=== PATIENT | male | born 1960 | race Caucasian/White ===

== ENCOUNTER 2019-02-27 12:29 | Emergency (ER) | payer SELFPAY ==
[~2019-02-27] VITALS: Ht 167.6 cm; Wt 64.9 kg
--- OUTSIDE RECORDS SUMMARY | 2019-02-27 12:38 | XMS REPORT ---
Author Author JUDITH WASHINGTON Organization [facility] Address [address] [place] [address] Care Team Providers Care Side Laster Staple Name Role Phone JUDITH WASHINGTON Unavailable PROBLEMS Type Condition ICD9-CM Code [id number]-BH Code Onset Dates Condition Status SNOMED Code Problem Type 2 diabetes mellitus without complication, without long-term current use of insulin E11.9 Active 834908832 Problem Hematuria, unspecified 599.70 Active 98548415 ALLERGIES No Information ENCOUNTERS Encounter Location Date Diagnosis [place] [address] [address] Jul, [place] [address] [address] Jul, [place] [address] [address] Jul, Type 2 diabetes mellitus without complication, without long-term current use of insulin E11.9 and Encounter for immunization Z23 [place] [address] [place] [id number] [place] [address] Jan, [place] [address] [place] [id number] [place] [address] Jan, [place] [address] [place] [id number] [place] [address] Dec, [place] [address] [address] Dec, IMMUNIZATIONS No Known Immunizations SOCIAL HISTORY Never Assessed REASON FOR VISIT New orders PLAN OF CARE VITAL SIGNS MEDICATIONS Medication Instructions Dosage Frequency Start Date End Date Duration Status Lisinopril 10 mg Orally Once a day 1 tablet 24h Jul, 30 day(s) Active RESULTS No Results PROCEDURES No Known procedures INSTRUCTIONS MEDICATIONS ADMINISTERED No Known Medications MEDICAL (GENERAL) HISTORY Type Description Date Medical History diabetes type 2 Surgical History tooth removed 07/11/2018
--- OUTSIDE RECORDS SUMMARY | 2019-02-27 12:38 | XMS REPORT ---
Author Author JUDITH WASHINGTON Organization [facility] Address [address] [place] [address] Care Team Providers Care Education Professor Name Role Phone JUDITH WASHINGTON Unavailable PROBLEMS Type Condition ICD9-CM Code UXG60-AT Code Onset Dates Condition Status SNOMED Code Problem Type 2 diabetes mellitus without complication, without long-term current use of insulin E11.9 Active 033923863 Problem Hematuria, unspecified 599.70 Active 09481155 ALLERGIES No Information ENCOUNTERS Encounter Location Date Diagnosis [place] [address] [address] Jul, [place] [address] [address] Jul, [place] [address] [address] Jul, [place] [address] [address] Jul, Type 2 diabetes mellitus without complication, without long-term current use of insulin E11.9 and Encounter for immunization Z23 [place] [address] [place] [id number] [place] [address] Jan, [facility] [address] [place] [id number] [place] [address] Jan, [place] [address] [address] Dec, [place] [address] [address] Dec, IMMUNIZATIONS No Known Immunizations SOCIAL HISTORY Never Assessed REASON FOR VISIT Refill request PLAN OF CARE VITAL SIGNS MEDICATIONS Medication Instructions Dosage Frequency Start Date End Date Duration Status Metformin HCl 500 mg Orally twice a day 1 tablet with a meal 12h 30 days Active Glimepiride 1 MG Orally Once a day 1 tablet with breakfast or the first main meal of the day 24h 30 day(s) Active RESULTS No Results PROCEDURES No Known procedures INSTRUCTIONS MEDICATIONS ADMINISTERED No Known Medications MEDICAL (GENERAL) HISTORY Type Description Date Medical History diabetes type 2 Surgical History tooth removed 07/11/2018
--- OUTSIDE RECORDS SUMMARY | 2019-02-27 12:38 | XMS REPORT ---
Author Author JUDITH WASHINGTON Organization [facility] Address [address] [place] [address] Care Team Providers Care Doggy Daycare Activities Director Name Role Phone JUDITH WASHINGTON Unavailable PROBLEMS Type Condition ICD9-CM Code SEA25-BU Code Onset Dates Condition Status SNOMED Code Problem Erectile dysfunction, unspecified erectile dysfunction type N52.9 Active 119565950 Problem Primary hypertension I10 Active 99057127 Problem Type 2 diabetes mellitus without complication, without long-term current use of insulin E11.9 Active 330198522 Problem Hematuria, unspecified 599.70 Active 69511815 ALLERGIES No Known Allergies ENCOUNTERS Encounter Location Date Diagnosis [place] [address] [place] [id number] [place] [address] Oct, [facility] [address] [place] [id number] [place] [address] Sep, Erectile dysfunction, unspecified erectile dysfunction type N52.9 ; Type 2 diabetes mellitus without complication, without long-term current use of insulin E11.9 and Primary hypertension I10 [place] [address] [place] [id number] [place] [address] Aug, [place] [address] [place] [id number] [place] [address] Jul, [facility] [address] [place] [id number] [place] [address] Jul, [facility] [address] [address] Jul, [place] [address] [place] [id number] [place] [address] Jul, Type 2 diabetes mellitus without complication, without long-term current use of insulin E11.9 and Encounter for immunization Z23 [facility] [address] [facility] [id number] [address] Jan, [facility] [address] [facility] [id number] [address] Jan, [facility] [address] [facility] [id number] [address] Dec, [facility] [address] [facility] [id number] [address] Dec, IMMUNIZATIONS No Known Immunizations SOCIAL HISTORY Never Assessed REASON FOR VISIT Erectile dysfunction c/o-misha,RMA, pt is still having some issues with his er ections wants to know if there any medicine he can take PLAN OF CARE Activity Details Follow Up scheduled apt Reason: VITAL SIGNS Height 66 in 2018-09-20 Weight 156.3 lbs 2018-09-20 Temperature 97.0 degrees Fahrenheit 2018-09-20 Heart Rate 79 bpm 2018-09-20 Respiratory Rate 18 2018-09-20 Oximetry on room air:100 % 2018-09-20 BMI 25.22 kg/m2 2018-09-20 Blood pressure systolic 140 mmHg 2018-09-20 Blood pressure diastolic 76 mmHg 2018-09-20 MEDICATIONS Medication Instructions Dosage Frequency Start Date End Date Duration Status Glimepiride 1 MG Orally Once a day 1 tablet with breakfast or the first main meal of the day 24h 30 day(s) Active Lisinopril 10 mg Orally Once a day 1 tablet 24h Jul, 30 day(s) Active Metformin HCl 500 mg Orally twice a day 1 tablet with a meal 12h 30 days Active Sildenafil Citrate 100 MG Orally Once a day 1 tablet as needed 24h Sep, 21 days Active RESULTS No Results PROCEDURES No Known procedures INSTRUCTIONS MEDICATIONS ADMINISTERED No Known Medications MEDICAL (GENERAL) HISTORY Type Description Date Medical History diabetes type 2 Medical History ED Surgical History tooth removed 07/11/2018 Surgical History appendectomy Surgical History kidney stone
--- OUTSIDE RECORDS SUMMARY | 2019-02-27 12:38 | XMS REPORT ---
Author Author JUDITH WASHINGTON Organization [facility] Address [address] [place] [address] Care Team Providers Care Business Consultant Name Role Phone JUDITH WASHINGTON Unavailable PROBLEMS Type Condition ICD9-CM Code YFS51-VL Code Onset Dates Condition Status SNOMED Code Problem Type 2 diabetes mellitus without complication, without long-term current use of insulin E11.9 Active 424315278 Problem Hematuria, unspecified 599.70 Active 25576101 ALLERGIES No Information ENCOUNTERS Encounter Location Date Diagnosis [place] [id number] [address] Oct, [facility] [address] [address] Aug, [facility] [address] [address] Jul, [facility] [address] [address] Jul, [facility] [address] [place] [id number] [place] [address] Jul, [facility] [address] [address] Jul, Type 2 diabetes mellitus without complication, without long-term current use of insulin E11.9 and Encounter for immunization Z23 [facility] [address] [address] Jan, [facility] [address] [address] Jan, [facility] [address] [address] Dec, [facility] [address] [facility] [id number] [address] Dec, IMMUNIZATIONS No Known Immunizations SOCIAL HISTORY Never Assessed REASON FOR VISIT Repository Medication PLAN OF CARE VITAL SIGNS MEDICATIONS Unknown Medications RESULTS No Results PROCEDURES No Known procedures INSTRUCTIONS MEDICATIONS ADMINISTERED No Known Medications MEDICAL (GENERAL) HISTORY Type Description Date Medical History diabetes type 2 Surgical History tooth removed 07/11/2018
--- OUTSIDE RECORDS SUMMARY | 2019-02-27 12:39 | XMS REPORT ---
Author Author JUDITH WASHINGTON Organization [facility] Address [address] [place] [address] Care Team Providers Care Science Center Display Builder Name Role Phone JUDITH WASHINGTON Unavailable PROBLEMS Type Condition ICD9-CM Code CPQ88-HL Code Onset Dates Condition Status SNOMED Code Problem Type 2 diabetes mellitus without complication, without long-term current use of insulin E11.9 Active 200690167 Problem Hematuria, unspecified 599.70 Active 80006363 ALLERGIES No Known Allergies ENCOUNTERS Encounter Location Date Diagnosis [place] [address] [address] Jul, [place] [address] [address] Jul, [facility] [address] [address] Jul, Type 2 diabetes mellitus without complication, without long-term current use of insulin E11.9 and Encounter for immunization Z23 [place] [address] [place] [id number] [place] [address] Jan, [place] [address] [place] [id number] [place] [address] Jan, [place] [address] [place] [id number] [place] [address] Dec, [place] [address] [address] Dec, IMMUNIZATIONS Vaccine Route Administration Date Status FLULAVAL QUAD 0.5ML (6 MO & UP) 2018 IM Intramuscular Jul 13, 2018 Administered SOCIAL HISTORY Never Assessed REASON FOR VISIT Establish Care-MORIAH cabral, patient would like to have his A1C checked PLAN OF CARE Activity Details Follow Up 3 Months. 3 months or as indicated by lab Reason:DM routine check up Pending Test MICROALBUMIN, URINE (IN HOUSE) Pending Test LIPID PANEL Pending Test CBC VITAL SIGNS Height 66 in 2018-07-13 Weight 154.2 lbs 2018-07-13 Temperature 97.4 degrees Fahrenheit 2018-07-13 Heart Rate 63 bpm 2018-07-13 Respiratory Rate 18 2018-07-13 Oximetry on room air:99 % 2018-07-13 BMI 24.89 kg/m2 2018-07-13 Blood pressure systolic 130 mmHg 2018-07-13 Blood pressure diastolic 78 mmHg 2018-07-13 MEDICATIONS Medication Instructions Dosage Frequency Start Date End Date Duration Status Metformin HCl 500 MG Orally twice a day 1 tablet with a meal 12h Active Glimepiride 1 MG Orally Once a day 1 tablet with breakfast or the first main meal of the day 24h 30 day(s) Active RESULTS No Results PROCEDURES Procedure Date Ordered Result Body Site COMPLETE CBC W/AUTO DIFF WBC Jul 13, 2018 COMPREHEN METABOLIC PANEL Jul 13, 2018 SINGLE IMMUNIZATION ADMIN Jul 13, 2018 FLULAVAL QUAD 0.5ML (6 MO AND UP) 2018 Jul 13, 2018 VENIPUNCT, ROUTINE* Jul 13, 2018 GLYCATED HEMOGLOBIN TEST Jul 13, 2018 LIPID PANEL Jul 13, 2018 MICROALBUMIN, SEMIQUANT Jul 13, 2018 INSTRUCTIONS MEDICATIONS ADMINISTERED No Known Medications MEDICAL (GENERAL) HISTORY Type Description Date Medical History diabetes type 2 Surgical History tooth removed 07/11/2018
--- OUTSIDE RECORDS SUMMARY | 2019-02-27 12:39 | XMS REPORT ---
Author Author JUDITH WASHINGTON Organization [facility] Address [address] [place] [address] Care Team Providers Care Shipping Services Sales Representative Name Role Phone JUDITH WASHINGTON Unavailable PROBLEMS Type Condition ICD9-CM Code SCD39-AI Code Onset Dates Condition Status SNOMED Code Problem Type 2 diabetes mellitus without complication, without long-term current use of insulin E11.9 Active 096428241 Problem Hematuria, unspecified 599.70 Active 52259491 ALLERGIES No Information ENCOUNTERS Encounter Location Date Diagnosis [place] [address] [place] [id number] [place] [address] Jul, [facility] [address] [place] [id number] [place] [address] Jul, Type 2 diabetes mellitus without complication, without long-term current use of insulin E11.9 and Encounter for immunization Z23 [facility] [address] [place] [id number] [place] [address] Jan, [place] [address] [place] [id number] [place] [address] Jan, [place] [address] [place] [id number] [place] [address] Dec, [place] [address] [place] [id number] [place] [address] Dec, IMMUNIZATIONS No Known Immunizations SOCIAL HISTORY Never Assessed REASON FOR VISIT Returned call PLAN OF CARE VITAL SIGNS MEDICATIONS Unknown Medications RESULTS No Results PROCEDURES No Known procedures INSTRUCTIONS MEDICATIONS ADMINISTERED No Known Medications MEDICAL (GENERAL) HISTORY Type Description Date Medical History diabetes type 2 Surgical History tooth removed 07/11/2018
--- OUTSIDE RECORDS SUMMARY | 2019-02-27 12:39 | XMS REPORT | Continuity of Care Document ---
Author Organization Unknown Address Unknown Allergies There is no data. Medications There is no data. Problems Date Dx Coded Attending Type Code Diagnosis Diagnosed By 01/04/2014 TAMARA OTTO MD 599.70 HEMATURIA UNSPECIFIED Procedures Code Description Performed By Performed On Urology Jericho Hurley 01/04/[address] ABDOMEN & PELVIS W/O CONTRAST 01/05/2014 Results Test Result Range CMP - 07/13/18 09:01 GLUCOSE 225 mg/dL 65-99 UREA NITROGEN (BUN) 12 mg/dL 7-25 CREATININE 0.99 mg/dL 0.70-1.33 eGFR NON-AFR. LEBANESE 85 mL/min/1.73m2 > OR=60 eGFR 98 mL/min/1.73m2 > OR=60 BUN/CREATININE RATIO NOT APPLICABLE (calc) 6-22 SODIUM 138 mmol/L 135-146 POTASSIUM 4.3 mmol/L 3.5-5.3 CHLORIDE 104 mmol/L 98-110 CARBON DIOXIDE 27 mmol/L 20-32 CALCIUM 9.2 mg/dL 8.6-10.3 PROTEIN, TOTAL 6.8 g/dL 6.1-8.1 ALBUMIN 4.2 g/dL 3.6-5.1 GLOBULIN 2.6 g/dL (calc) 1.9-3.7 ALBUMIN/GLOBULIN RATIO 1.6 (calc) 1.0-2.5 BILIRUBIN, TOTAL 0.6 mg/dL 0.2-1.2 ALKALINE PHOSPHATASE 65 U/L 40-115 AST 12 U/L 10-35 ALT 10 U/L 9-46 Encounters ACCT No. Visit Date/Time Discharge Status Pt. Type Provider Facility Loc./Unit Complaint [id number] 01/04/2014 13:50:00 01/04/2014 23:59:59 [place] [id number] 02/22/2019 15:40:00 02/22/2019 23:59:59 [facility] [id number] 07/13/2018 08:00:00 Document Registration [id number] 01/05/2014 13:50:00 01/05/2014 23:59:59 [facility] Outpatient
--- NOTE | 2019-02-27 13:44 | ED GU-Female ---
General Chief Complaint: - Urinary Stated Complaint: BLOOD IN URINE Nursing Triage Note: PT REPORTS GOING TO THE DOCTOR LAST WEEK ON WEDNESDAY AND HAVING UA DONE. PT WAS TOLD HE HAD BLOOD IN HIS URINE. PT PRESENTS TO ER WANTING TO CHECK TO SEE IF HE STILL HAS BLOOD IN HIS URINE. PT DENIES SEEING BLOOD IN URINE, HAVING PAIN WHEN URINATING, INCREASED FREQUENCY, CHILLS, OR FEVER. Nursing Sepsis Screen: No Definite Risk Source: patient Exam Limitations: no limitations History of Present Illness Date Seen by Provider: February 27, 2019 Time Seen by Provider: 13:41 Initial Comments To ER per private vehicle with reports of hematuria. He states that he's been having some general weakness for a couple of weeks now, was noted to have microscopic hematuria on UA 2 weeks ago at [facility]. No fevers or chills. No nausea or vomiting. States that he does frequently wake up during the night to urinate tho. Timing/Duration: constant Location: other Radiation: none Activities at Onset: none Prior Genitourinary Problems: none Associated Symptoms: No dysuria, No nausea/vomiting; urinary frequency Allergies and Home Medications Allergies Coded Allergies: NKANo Known Allergies (Unverified Allergy, Mild, 02/27/19) Patient Home Medication List Home Medication List Reviewed: Yes Review of Systems Review of Systems Constitutional: see HPI, weakness EENTM: see HPI Respiratory: no symptoms reported Cardiovascular: no symptoms reported Genitourinary: no symptoms reported Musculoskeletal: no symptoms reported Skin: no symptoms reported Psychiatric/Neurological: No Symptoms Reported Endocrine: No Symptoms Reported Past Keaoibh-Azmhac-Cazkre Hx Patient Social History Alcohol Use: Denies Use Recreational Drug Use: No Type Used: Smokeless Tobacco Recent Foreign Travel: No Contact w/Someone Who Travel: No Recent Infectious Disease Expo: No Recent Hopitalizations: No Physical Abuse: No Sexual Abuse: No Seasonal Allergies Seasonal Allergies: No Past Medical History Surgeries: Yes (appendectomy) Respiratory: No Cardiac: No Neurological: No Reproductive Disorders: No Genitourinary: No Gastrointestinal: No Musculoskeletal: No Endocrine: Yes Diabetes, Insulin dep HEENT: No Cancer: No Psychosocial: No Integumentary: No Blood Disorders: No Physical Exam Vital Signs Vital Signs - First Documented 02/27/19 13:13 Temp 96.5 Pulse 78 Resp 14 B/P (MAP) 95/61 (72) Pulse Ox 98 Capillary Refill : Less Than 3 Seconds Height, Weight, BMI Height: 5'6.00" Weight: 143lbs. oz. 64.179716hx; BMI Method:Stated General Appearance: WD/WN, no apparent distress HEENT: PERRL/EOMI, normal ENT inspection Neck: non-tender, full range of motion Respiratory: no respiratory distress, no accessory muscle use Gastrointestinal: normal bowel sounds, non tender, soft Extremities: normal range of motion, non-tender Neurologic/Psychiatric: alert, normal mood/affect Skin: normal color, warm/dry Progress/Results/Core Measures Suspected Sepsis Recent Fever Within 48 Hours: No Infection Criteria Present: None New/Unexplained Altered Menta: No Sepsis Screen: No Definite Risk SIRS Temperature:96.5 Pulse: 78 Respiratory Rate: 14 Laboratory Tests 02/27/19 13:39: White Blood Count 6.8 Blood Pressure 95 /61 Mean: 72 Laboratory Tests 02/27/19 13:39: Creatinine 1.18, Platelet Count 102L Results/Orders Lab Results Laboratory Tests Test 02/27/19 13:39 02/27/19 13:51 Range/Units White Blood Count 6.8 4.3-11.0 10^3/uL Red Blood Count 4.92 4.35-5.85 10^6/uL Hemoglobin 14.8 13.3-17.7 G/DL Hematocrit 42 40-54 % Mean Corpuscular Volume 85 80-99 FL Mean Corpuscular Hemoglobin 30 25-34 PG Mean Corpuscular Hemoglobin Concent 35 32-36 G/DL Red Cell Distribution Width 12.5 10.0-14.5 % Platelet Count 102 L 130-400 10^3/uL Mean Platelet Volume 12.4 H 7.4-10.4 FL Neutrophils (%) (Auto) 28 L 42-75 % Lymphocytes (%) (Auto) 50 H 12-44 % Monocytes (%) (Auto) 16 H 0-12 % Eosinophils (%) (Auto) 0 0-10 % Basophils (%) (Auto) 5 0-10 % Neutrophils # (Auto) 1.9 1.8-7.8 X 10^3 Lymphocytes # (Auto) 3.4 1.0-4.0 X 10^3 Monocytes # (Auto) 1.1 H 0.0-1.0 X 10^3 Eosinophils # (Auto) 0.0 0.0-0.3 10^3/uL Basophils # (Auto) 0.3 H 0.0-0.1 10^3/uL Sodium Level 127 L 135-145 MMOL/L Potassium Level 3.9 3.6-5.0 MMOL/L Chloride Level 96 L 98-107 MMOL/L Carbon Dioxide Level 19 L 21-32 MMOL/L Anion Gap 12 5-14 MMOL/L Blood Urea Nitrogen 27 H 7-18 MG/DL Creatinine 1.18 0.60-1.30 MG/DL Estimat Glomerular Filtration Rate > 60 BUN/Creatinine Ratio 23 Glucose Level 314 H 70-105 MG/DL Calcium Level 8.9 8.5-10.1 MG/DL Troponin I < 0.028 <0.028 NG/ML My Orders Orders - IVONNE MANZO APRN Cbc With Automated Diff (02/27/19 13:25) Basic Metabolic Panel (02/27/19 13:25) BNP (02/27/19 13:25) Troponin I (02/27/19 13:25) Manual Differential (02/27/19 13:39) Vital Signs/I&O 02/27/19 13:13 Temp 96.5 Pulse 78 Resp 14 B/P (MAP) 95/61 (72) Pulse Ox 98 Capillary Refill : Less Than 3 Seconds Blood Pressure Mean: 72 Departure Communication (Admissions) The hyponatremia could be accounting for his weakness. I don't have any prior labs to compare to. I discussed this with him and fluid intake. He states he drinks several jugs of water during the day at work and Tea on the weekends. Discussed with him the need to reduce this by half and have this rechecked in a few days. I did make an appointment for him with Dr. Dale tomorrow morning at 9 AM. Impression Primary Impression: Thrombocytopenia Additional Impression: Hyponatremia Disposition: 01 HOME, SELF-CARE Condition: Stable Departure-Patient Inst. Decision time for Depature: 14:22 Referrals: ANGELICA ACOSTA MD (Family) Primary Care Physician Patient Instructions: Hyponatremia Add. Discharge Instructions: 1. Follow-up with Dr. Otto tomorrow morning at [address] [facility]. Reduce your water/tea intake by about 50% until he directs you otherwise. Work/School Note: Work Release Form Date Seen in the Emergency Department: February 27, 2019 Return to Work: March 02, 2019 Copy Copies To 1: TAMARA OTTO MD, PETER J APRN February 27, 2019 13:44
[2019-02-27 13:51] LABS: BASOPHILS # (AUTO) 0.3 10^3/uL (0.0-0.1); BASOPHILS % (AUTO) 5 % (0-10); EOSINOPHILS % (AUTO) 0 % (0-10); HEMATOCRIT 42 % (40-54); HEMOGLOBIN 14.8 G/DL (13.3-17.7); LYMPHOCYTES # (AUTO) 3.4 X 10^3 (1.0-4.0); LYMPHOCYTES % (AUTO) 50 % (12-44); MEAN CORPUSCULAR HEMOGLOBIN 30 PG (25-34); MEAN CORPUSCULAR HGB CONC 35 G/DL (32-36); MEAN CORPUSCULAR VOLUME 85 FL (80-99); MEAN PLATELET VOLUME 12.4 FL (7.4-10.4); MONOCYTES # (AUTO) 1.1 X 10^3 (0.0-1.0); MONOCYTES % (AUTO) 16 % (0-12); NEUTROPHILS # (AUTO) 1.9 X 10^3 (1.8-7.8); NEUTROPHILS % (AUTO) 28 % (42-75); PLATELET COUNT 102 10^3/uL (130-400); RED CELL DISTRIBUTION WIDTH 12.5 % (10.0-14.5); WHITE BLOOD COUNT 6.8 10^3/uL (4.3-11.0)
[2019-02-27 14:03] LABS: BILIRUBIN,URINE NEGATIVE (NEGATIVE); CLARITY,URINE CLEAR; COLOR,URINE YELLOW; GLUCOSE, URINE (UA) 4+ (NEGATIVE); KETONES,URINE 1+ (NEGATIVE); LEUKOCYTE ESTERASE ,URINE NEGATIVE (NEGATIVE); NITRITE,URINE NEGATIVE (NEGATIVE); PH,URINE 5 (5-9); PROTEIN,URINE 2+ (NEGATIVE); UROBILINOGEN,URINE NORMAL (NORMAL)
[2019-02-27 14:06] LABS: BUN/CREATININE RATIO 23; CALCIUM 8.9 MG/DL (8.5-10.1); CARBON DIOXIDE 19 MMOL/L (21-32); CHLORIDE 96 MMOL/L (98-107); CREATININE SERUM 1.18 MG/DL (0.60-1.30); GFR ESTIMATED > 60; GLUCOSE 314 MG/DL (70-105); POTASSIUM 3.9 MMOL/L (3.6-5.0); SODIUM 127 MMOL/L (135-145)
[2019-02-27 14:36] LABS: BACTERIA,URINE NEGATIVE /HPF
[2019-02-27 14:44] LABS: BAND NEUTROPHILS 0 %; BASOPHILS % (MANUAL) 0 %; EOSINOPHILS % (MANUAL) 2 %; LYMPHOCYTES % (MANUAL) 36 %; MONOCYTES % (MANUAL) 14 %; NEUTROPHILS % (MANUAL) 36 %
[2019-02-27 14:45] LABS: RBC MORPH NORMAL; REACTIVE LYMPHOCYTES 12 %
[2019-02-27 14:55] VITALS: BP 95/61
== END 2019-02-27 14:55 | disposition home or self-care (01) ==
LOC: EDUNIT# 12:29 → ER 12:31
DX: D69.6 Thrombocytopenia, unspecified (principal); E87.1 Hypo-osmolality and hyponatremia; E11.9 Type 2 diabetes mellitus without complications; F17.200 Nicotine dependence, unspecified, uncomplicated; Z90.49 Acquired absence of other specified parts of digestive tract
CPT/HCPCS: 36415; 80048; 81000; 83880; 84484; 85007; 85027; 99282

== ENCOUNTER 2021-12-08 20:55 | Inpatient (IN) | payer BC ==
[~2021-12-08] VITALS: Ht 167 cm; Wt 68.1 kg
[2021-12-08] MEDS ORDERED: LACTATED RINGERS 1,000 ML IV SCH ×2 (21:00→22:00)
[2021-12-08 21:07] LABS: BASOPHILS # (AUTO) 0.1 10^3/uL (0.0-0.1); BASOPHILS % (AUTO) 1 % (0-10); EOSINOPHILS # (AUTO) 0.4 10^3/uL (0.0-0.3); EOSINOPHILS % (AUTO) 4 % (0-10); HEMATOCRIT 38 % (40-54); HEMOGLOBIN 12.9 g/dL (13.3-17.7); LYMPHOCYTES # (AUTO) 1.6 10^3/uL (1.0-4.0); LYMPHOCYTES % (AUTO) 15 % (12-44); MEAN CORPUSCULAR HEMOGLOBIN 30 pg (25-34); MEAN CORPUSCULAR HGB CONC 34 g/dL (32-36); MEAN CORPUSCULAR VOLUME 88 fL (80-99); MEAN PLATELET VOLUME 10.3 fL (9.0-12.2); MONOCYTES # (AUTO) 0.9 10^3/uL (0.0-1.0); MONOCYTES % (AUTO) 8 % (0-12); NEUTROPHILS # (AUTO) 7.7 10^3/uL (1.8-7.8); NEUTROPHILS % (AUTO) 72 % (42-75); PLATELET COUNT 345 10^3/uL (130-400); WHITE BLOOD COUNT 10.7 10^3/uL (4.3-11.0)
--- NOTE | 2021-12-08 21:15 | ED General ---
General Chief Complaint: Neurological Problems Stated Complaint: WEAKNESS, HIGH BLOOD SUGAR Source of Information: Patient, EMS Exam Limitations: No Limitations History of Present Illness Date Seen by Provider: Dec 08, 2021 Time Seen by Provider: 21:14 Initial Comments To ER by EMS with reports of general weakness, high blood sugar, right flank pain. The right flank pain is been intermittent for a few weeks. He ran out of his Tresiba yesterday. No fevers or chills or vomiting. Timing/Duration: Getting Worse, Intermittent Severity: Moderate Associated Systoms: Denies Symptoms Allergies and Home Medications Allergies Coded Allergies: NKANo Known Allergies (Unverified Allergy, Mild, 02/27/19) Patient Home Medication List Home Medication List Reviewed: Yes Review of Systems Review of Systems Constitutional: see HPI; No chills, No fever EENTM: see HPI Respiratory: no symptoms reported Cardiovascular: no symptoms reported Genitourinary: see HPI Musculoskeletal: no symptoms reported Skin: no symptoms reported Psychiatric/Neurological: No Symptoms Reported Hematologic/Lymphatic: No Symptoms Reported Immunological/Allergic: no symptoms reported Past Fdfnfly-Qtueej-Ihxaac Hx Seasonal Allergies Seasonal Allergies: No Past Medical History Surgeries: Yes (appendectomy) Respiratory: No Cardiac: No Neurological: No Reproductive Disorders: No Genitourinary: No Gastrointestinal: No Musculoskeletal: No Endocrine: Yes Diabetes, Insulin dep HEENT: No Cancer: No Psychosocial: No Integumentary: No Blood Disorders: No Physical Exam Vital Signs Vital Signs - First Documented 12/08/21 20:55 Temp 36.1 Pulse 61 Resp 20 B/P (MAP) 160/106 (124) Pulse Ox 100 O2 Delivery Room Air Capillary Refill : Height, Weight, BMI Height: 5'6.00" Weight: 143lbs. oz. 64.910459tj; BMI Method:Stated General Appearance: No Apparent Distress, WD/WN, Other (Waxing and waning right flank pain) Eyes: Bilateral Eye Normal Inspection, Bilateral Eye PERRL, Bilateral Eye EOMI Neck: Full Range of Motion, Normal Inspection Respiratory: No Accessory Muscle Use, No Respiratory Distress Cardiovascular: Regular Rate, Rhythm, Normal Peripheral Pulses Gastrointestinal: Normal Bowel Sounds, Non Tender, Soft Back: CVA Tenderness (R) Extremity: Normal Capillary Refill, Normal Inspection Neurologic/Psychiatric: Alert, Oriented x3 Skin: Normal Color, Warm/Dry Progress/Results/Core Measures Suspected Sepsis SIRS Temperature: Pulse: Respiratory Rate: Laboratory Tests 12/08/21 20:58: White Blood Count 10.7 Blood Pressure / Mean: Laboratory Tests 12/08/21 20:58: Creatinine 2.28H, Platelet Count 345, Total Bilirubin 0.4 Results/Orders Lab Results Laboratory Tests Test 12/08/21 20:58 12/08/21 21:02 12/08/21 21:18 12/08/21 21:56 Range/Units White Blood Count 10.7 4.3-11.0 10^3/uL Red Blood Count 4.30 4.30-5.52 10^6/uL Hemoglobin 12.9 L 13.3-17.7 g/dL Hematocrit 38 L 40-54 % Mean Corpuscular Volume 88 80-99 fL Mean Corpuscular Hemoglobin 30 25-34 pg Mean Corpuscular Hemoglobin Concent 34 32-36 g/dL Red Cell Distribution Width 12.6 10.0-14.5 % Platelet Count 345 130-400 10^3/uL Mean Platelet Volume 10.3 9.0-12.2 fL Immature Granulocyte % (Auto) 0 % Neutrophils (%) (Auto) 72 42-75 % Lymphocytes (%) (Auto) 15 12-44 % Monocytes (%) (Auto) 8 0-12 % Eosinophils (%) (Auto) 4 0-10 % Basophils (%) (Auto) 1 0-10 % Neutrophils # (Auto) 7.7 1.8-7.8 10^3/uL Lymphocytes # (Auto) 1.6 1.0-4.0 10^3/uL Monocytes # (Auto) 0.9 0.0-1.0 10^3/uL Eosinophils # (Auto) 0.4 H 0.0-0.3 10^3/uL Basophils # (Auto) 0.1 0.0-0.1 10^3/uL Immature Granulocyte # (Auto) 0.0 0.0-0.1 10^3/uL Sodium Level 123 *L 135-145 MMOL/L Potassium Level 4.5 3.6-5.0 MMOL/L Chloride Level 91 L 98-107 MMOL/L Carbon Dioxide Level 18 L 21-32 MMOL/L Anion Gap 14 5-14 MMOL/L Blood Urea Nitrogen 43 H 7-18 MG/DL Creatinine 2.28 H 0.60-1.30 MG/DL Estimat Glomerular Filtration Rate 32 BUN/Creatinine Ratio 19 Glucose Level 795 *H 70-105 MG/DL Calcium Level 9.5 8.5-10.1 MG/DL Corrected Calcium 9.4 8.5-10.1 MG/DL Total Bilirubin 0.4 0.1-1.0 MG/DL Aspartate Amino Transf (AST/SGOT) 13 5-34 U/L Alanine Aminotransferase (ALT/SGPT) 16 0-55 U/L Alkaline Phosphatase 92 40-136 U/L Total Protein 7.5 6.4-8.2 GM/DL Albumin 4.1 3.2-4.5 GM/DL Beta-Hydroxybutyrate (Chem panel) 0.16 0.00-0.27 MMOL/L SARS-CoV-2 RNA (RT-PCR) Not Detected Not Detecte Urine Color YELLOW Urine Clarity CLEAR Urine pH 6.0 5-9 Urine Specific [place] <=1.005 1.016-1.022 Urine Protein NEGATIVE NEGATIVE Urine Glucose (UA) 3+ H NEGATIVE Urine Ketones NEGATIVE NEGATIVE Urine Nitrite NEGATIVE NEGATIVE Urine Bilirubin NEGATIVE NEGATIVE Urine Urobilinogen 0.2 < = 1.0 MG/DL Urine Leukocyte Esterase NEGATIVE NEGATIVE Urine RBC (Auto) TRACE-I H NEGATIVE Urine RBC NONE /HPF Urine WBC 0-2 /HPF Urine Squamous Epithelial Cells NONE /HPF Urine Crystals NONE /LPF Urine Bacteria NEGATIVE /HPF Urine Casts NONE /LPF Urine Mucus NEGATIVE /LPF Urine Culture Indicated NO Blood Gas Puncture Site L RADIAL Blood Gas Patient Temperature 37 Arterial Blood pH 7.37 7.37-7.43 Arterial Blood Partial Pressure CO2 34 L 35-45 MMHG Arterial Blood Partial Pressure O2 96 H 79-93 MMHG Arterial Blood HCO3 19 L 23-27 MMOL/L Arterial Blood Total CO2 20.1 L 21.0-31.0 MMOL/L Arterial Blood Oxygen Saturation 98 94-100 % Arterial Blood Base Excess -5.3 L -2.5-2.5 MMOL/L Joshua Test YES-POS Blood Gas Ventilator Setting NO Blood Gas Inspired Oxygen ROOM AIR My Orders Orders - [employer] Cbc With Automated Diff (12/08/21 20:59) Comprehensive Metabolic Panel (12/08/21 20:59) Beta Hydroxybutyrate (12/08/21 20:59) Ed Iv/Invasive Line Start (12/08/21 20:59) Ua Culture If Indicated (12/08/21 20:59) Lactated Ringers (Lr 1000 Ml Iv Solution (12/08/21 21:00) Accucheck Stat ONCE (12/08/21 20:59) Covid 19 Inhouse Test (12/08/21 21:14) Chest 1 View, Ap/Pa Only (12/08/21 21:55) Ct Abd/Pelvis Wo(Kidney Stone) (12/08/21 21:55) Abdomen/Kub 1view (12/08/21 21:55) Fentanyl Inj (Sublimaze Injection) (12/08/21 22:00) Arterial Blood Gas (12/08/21 21:56) Lactated Ringers (Lr 1000 Ml Iv Solution (12/08/21 22:00) Insulin (Regular) Human (Novolin R (Per (12/08/21 22:15) Medications Given in ED Current Medications Medications Dose Ordered Sig/Daniel Route Start Time Stop Time Status Last Admin Dose Admin Fentanyl Citrate 50 mcg ONCE ONCE IVP 12/08/21 22:00 12/08/21 22:01 DC 12/08/21 22:02 50 MCG Insulin Human Regular 6 unit ONCE ONCE IV 12/08/21 22:15 12/08/21 22:16 DC 12/08/21 22:35 6 UNIT Vital Signs/I&O 12/08/21 20:55 Temp 36.1 Pulse 61 Resp 20 B/P (MAP) 160/106 (124) Pulse Ox 100 O2 Delivery Room Air Capillary Refill : Departure Communication (Admissions) [id number]-discussed with Dr. Alberto we will admit, hydrate, insulin drip in the ICU pain control and consult Dr. Hurley. I spoke with Dr. Hurley, he will consult though if the kidney function fails to improve, if this were to be an obstructive cause of acute kidney injury from the stone he may require transfer for percutaneous drain placement by interventional radiology. Spoke with Dr. Alberto, she agrees to arrange transfer of the patient if kidney function fails to improve. NAME: CAM ENGEL [facility] REC#: [id number] PT STATUS: REG ER : 1960 PHYSICIAN: [employer] ADMIT DATE: 12/08/21/ER Signed Date of Exam:12/08/21 CT ABD/PELVIS WO(KIDNEY STONE) CT ABD/PELVIS WO(KIDNEY STONE) TECHNIQUE: Unenhanced CT imaging of the abdomen and pelvis was performed. 2-D reformats are created and submitted for interpretation. Automatic exposure controls were utilized to optimize patient dose. INDICATION: Right flank pain COMPARISON: CT abdomen and pelvis of 01/05/2014 FINDINGS: Evaluation of the abdominal viscera is mildly limited without contrast. Lower chest: The lung bases are clear. No pericardial or pleural effusion. Peritoneum: No free intraperitoneal air or fluid. Liver and biliary system: Unenhanced liver is normal. Gallbladder is contracted without radiographic gallstones. Spleen and Pancreas: Spleen is normal. Unenhanced pancreas is grossly normal. Adrenals: Normal. tract: Moderate to severe right hydronephrosis and hydroureter due to an obstructing 8 mm stone at the right UVJ. There is an additional stone in the distal right ureter measuring 6 mm. Bilateral large nonobstructing renal stones are unchanged and the larger conglomeration is in the left renal pelvis measuring 25 mm. Urinary bladder is normally distended with mild wall thickening. GI tract: Stomach is decompressed. No bowel obstruction. No pericolonic inflammatory changes. The appendix is not seen with certainty. Vasculature and Lymph nodes: Normal caliber aorta. No abdominal or pelvic lymphadenopathy. Musculoskeletal: No concerning osseous lesion. IMPRESSION: 1. Moderate to severe right hydronephrosis due to an 8 mm obstructing stone at the right UVJ. There is an additional 6 mm stone in the distal right ureter just above the UVJ. 2. Bilateral large nonobstructing renal stones are also present. Dictated by: Dictated on workstation # [id number] Dict: 12/08/212214 Trans: 12/08/212224 [facility] [id number] Interpreted by: ANGELICA BOURGEOIS MD Electronically signed by: ANGELICA BOURGEOIS MD 12/08/212224 Impression Primary Impression: Hyperosmolar hyperglycemic state (HHS) Additional Impression: ULICES (acute kidney injury) Disposition: ADMITTED INPATIENT Condition: Stable Admissions Decision to Admit Reason: Admit from ER (General) Decision to Admit/Date: Dec 08, 2021 Time/Decision to Admit Time: 21:41 Departure-Patient Inst. Referrals: TAMARA OTTO MD (PCP/Family) Primary Care Physician IVONNE MANZO APRN Dec 08, 2021 21:15
[2021-12-08 21:33] LABS: ALBUMIN 4.1 GM/DL (3.2-4.5); BILIRUBIN,TOTAL 0.4 MG/DL (0.1-1.0); CALCIUM 9.5 MG/DL (8.5-10.1); CREATININE SERUM 2.28 MG/DL (0.60-1.30); POTASSIUM 4.5 MMOL/L (3.6-5.0); TOTAL PROTEIN 7.5 GM/DL (6.4-8.2)
[2021-12-08 21:33] LABS: BILIRUBIN,URINE NEGATIVE (NEGATIVE); CLARITY,URINE CLEAR; COLOR,URINE YELLOW; GLUCOSE, URINE (UA) 3+ (NEGATIVE); KETONES,URINE NEGATIVE (NEGATIVE); LEUKOCYTE ESTERASE ,URINE NEGATIVE (NEGATIVE); NITRITE,URINE NEGATIVE (NEGATIVE); PROTEIN,URINE NEGATIVE (NEGATIVE)
[2021-12-08 21:52] LABS: BACTERIA,URINE NEGATIVE /HPF; WBC,URINE 0-2 /HPF
[2021-12-08 22:00] LABS: ABG BASE EXCESS -5.3 MMOL/L (-2.5-2.5); ABG OXYGEN SATURATION 98 % (94-100); ABG PCO2 34 MMHG (35-45); ABG PH 7.37 (7.37-7.43); ABG PO2 96 MMHG (79-93); ABG TCO2 20.1 MMOL/L (21.0-31.0)
[2021-12-08] MEDS ORDERED: fentaNYL INJ 100 MCG/2 ML AMP IVP ONE (22:00)
[2021-12-08 22:01] LABS: ALLENS TEST YES-POS; INSPIRED O2 ROOM AIR; PATIENT TEMP 37; VENTILATOR NO
[2021-12-08] MEDS ORDERED: inSUlin (REGULAR) HUMAN 1 UNIT/0.01 ML (CHARGE PER UNIT) IV ONE (22:15)
--- NOTE | 2021-12-08 22:21 | Diagnostic Imaging Report ---
CT ABD/PELVIS WO(KIDNEY STONE) TECHNIQUE: Unenhanced CT imaging of the abdomen and pelvis was performed. 2-D reformats are created and submitted for interpretation. Automatic exposure controls were utilized to optimize patient dose. INDICATION: Right flank pain COMPARISON: CT abdomen and pelvis of 01/05/2014 FINDINGS: Evaluation of the abdominal viscera is mildly limited without contrast. Lower chest: The lung bases are clear. No pericardial or pleural effusion. Peritoneum: No free intraperitoneal air or fluid. Liver and biliary system: Unenhanced liver is normal. Gallbladder is contracted without radiographic gallstones. Spleen and Pancreas: Spleen is normal. Unenhanced pancreas is grossly normal. Adrenals: Normal. tract: Moderate to severe right hydronephrosis and hydroureter due to an obstructing 8 mm stone at the right UVJ. There is an additional stone in the distal right ureter measuring 6 mm. Bilateral large nonobstructing renal stones are unchanged and the larger conglomeration is in the left renal pelvis measuring 25 mm. Urinary bladder is normally distended with mild wall thickening. GI tract: Stomach is decompressed. No bowel obstruction. No pericolonic inflammatory changes. The appendix is not seen with certainty. Vasculature and Lymph nodes: Normal caliber aorta. No abdominal or pelvic lymphadenopathy. Musculoskeletal: No concerning osseous lesion. IMPRESSION: 1. Moderate to severe right hydronephrosis due to an 8 mm obstructing stone at the right UVJ. There is an additional 6 mm stone in the distal right ureter just above the UVJ. 2. Bilateral large nonobstructing renal stones are also present. Dictated by: Dictated on workstation # [id number]
--- NOTE | 2021-12-08 22:23 | Diagnostic Imaging Report ---
CHEST 1 VIEW, AP/PA ONLY Indication: Diabetic ketoacidosis Comparison: CT abdomen pelvis performed concurrently Findings: No focal airspace disease in the visualized lungs. Please note that the posterior lower lobes are poorly evaluated by portable radiography. No pleural effusion or pneumothorax. Normal cardiomediastinal silhouette. Impression: 1. No acute cardiopulmonary process by portable radiography. Dictated by: Dictated on workstation # [id number]
--- NOTE | 2021-12-08 22:26 | Diagnostic Imaging Report ---
INDICATION: Right flank pain. COMPARISON: CT abdomen and pelvis performed concurrently. TECHNIQUE: AP view of the abdomen. FINDINGS: Bilateral large renal calculi are present. There are calcifications in the right lower hemipelvis corresponding to the distal ureteral stones. Nonobstructive bowel gas pattern. Small volume of colonic stool. IMPRESSION: 1. Distal right ureteral stones result in hydronephrosis as seen on CT performed earlier same day. 2. Bilateral large renal stones are present. Dictated by: Dictated on workstation # [id number]
[2021-12-08] MEDS ORDERED: morphine INJ 10 MG/ML 1ML (SYR OR VIAL) IVP STA (22:38)
--- NOTE | 2021-12-08 23:06 | Tele-ICU Consult ---
History of Present Illness History of Present Illness Date Seen by Provider: Dec 08, 2021 Time Seen by Provider: 22:46 Date of Admission This virtual visit was conducted using real time audio/video. Thank you for asking us to see this patient for hyperosmolar hyperglycemic state, ULICES, hydronephrosis due to ureteral stone at UVJ PMH: Insulin dep DM SH: smoking history N FH: Non-contributory ROS:as in HPI. PE: VSS. O2 sat 10%% on RA HEENT: No obvious masses, adenopathy or JVD. Chest: clear to auscultation. CV: RRR S1 S2 No murmur or added sounds. Abd: Non-tender. Bowel sounds Y. : Unremarkable. Davey N. [employer]/psychiatric: Grossly intact. No obvious focal findings. Extremities: No edema. Capillary refill < 3 seconds. Skin: unremarkable. Results: Elevated BUN 43, Creat 2.28, BG 795. Normal AG. Decreased Na 123, Hb 12.9. B.37/34/96. CXR: Clear. Available chart/ vitals / labs / images reviewed. Video assessment done using teleICU camera, rest of exam as per RN. A/P: Critical Care: critically ill patient. Cont. IVF, PRN insulin, narcotics. Discussed with ARMANDO Sanchez. Asked RN to reach out to eICU if any questions or concerns later. Time spent with patient/coordination of care with other health professionals (mins): 25 Allergies and Home Medications Allergies Coded Allergies: NKANo Known Allergies (Unverified Allergy, Mild, 02/27/19) Past Medical/Social/Family Hx Patient Social History Tobacco Use?: Yes Smokeless type used: Chew Use of E-Cig and/or Vaping dev: No Substance use?: No 1990 USED TO SMOKE MARIJUANA. Alcohol Use?: No Pt stated abuse/neglect: No Immunizations Up To Date First/Initial COVID19 Vaccinat: 12/2020 Second COVID19 Vaccination Jaime: 01/2021 Current Status Advance Directives: No Primary Language: Mongolian Preferred Spoken Language: Mongolian Sensory deficits: Vision impairment Implanted or Applied Medical D: None Review of Systems Constitutional: see HPI EENTM: see HPI Respiratory: see HPI Cardiovascular: see HPI Gastrointestinal: see HPI Genitourinary: see HPI Musculoskeletal: see HPI Skin: see HPI Psychiatric/Neurological: See HPI All Other Systems Reviewed Negative Unless Noted: Yes Focused Exam Height, Weight, BMI Height: 5'6.00" Weight: 143lbs. oz. 64.391497pl; 21.00 BMI Method:Stated Exam Exam Patient acknowledged, consented, and participated in this virtual visit which was conducted using real time audio/video Vital Signs Date Time Temp Pulse Resp B/P (MAP) Pulse Ox O2 Delivery O2 Flow Rate FiO2 12/08/21 20:55 36.1 61 20 160/106 (124) 100 Room Air Height & Weight Height: 5'6.00" Weight: 143lbs. oz. 64.773187ad; 21.00 BMI Method:Stated General Appearance: No Apparent Distress, WD/WN, Other (Waxing and waning right flank pain) Neck: Full Range of Motion, Normal Inspection Respiratory: No Accessory Muscle Use, No Respiratory Distress Cardiovascular: Regular Rate, Rhythm, Normal Peripheral Pulses Capillary Refill: Less Than 3 Seconds Extremity: Normal Capillary Refill, Normal Inspection Neurologic/Psychiatric: Alert, Oriented x3 Skin: Normal Color, Warm/Dry Results Lab Laboratory Tests 12/08/21 20:58 Assessment/Plan Assessment/Plan See free text. Critical Care: Critically Ill Patient OCHOA MOORE MD Dec 08, 2021 23:06
[2021-12-08] MEDS ORDERED: cefTRIAXone 1 GM PRE-MIX 50 ML IV ONE (23:15)
[2021-12-09] MEDS ORDERED: fentaNYL INJ 100 MCG/2 ML AMP IVP ONE (01:15)
[2021-12-09] MEDS ORDERED: 1/2 NS IV SOLUTION 1,000 ML IV ONE (02:28)
[2021-12-09] MEDS ORDERED: POTASSIUM CL 10MEQ/50ML IVPB 50 ML IV ONE (02:28)
[2021-12-09] MEDS ORDERED: D5 1/2 NS 1000 ML IV SOLUTION 1,000 ML IV SCH (03:15)
[2021-12-09] MEDS ORDERED: NS IV 1000 ML 1,000 ML IV SCH (03:15)
[2021-12-09] MEDS: 1/2 NS IV SOLUTION 1,000 ML IV SCH ×6 (03:25→23:15)
[2021-12-09] MEDS: POTASSIUM CL 10MEQ/50ML IVPB 50 ML IV SCH ×3 (03:25→06:49)
[2021-12-09] MEDS ORDERED: ONDANSETRON 4 MG/2 ML (SDV) Z0FRAN IV PRN (03:30)
[2021-12-09] MEDS: fentaNYL INJ 100 MCG/2 ML AMP IV PRN ×4 (03:37→21:08)
[2021-12-09 04:09] LABS: BASOPHILS # (AUTO) 0.1 10^3/uL (0.0-0.1); BASOPHILS % (AUTO) 0 % (0-10); EOSINOPHILS # (AUTO) 0.1 10^3/uL (0.0-0.3); EOSINOPHILS % (AUTO) 0 % (0-10); HEMATOCRIT 32 % (40-54); LYMPHOCYTES # (AUTO) 1.8 10^3/uL (1.0-4.0); LYMPHOCYTES % (AUTO) 13 % (12-44); MEAN CORPUSCULAR HEMOGLOBIN 30 pg (25-34); MEAN CORPUSCULAR HGB CONC 34 g/dL (32-36); MEAN CORPUSCULAR VOLUME 88 fL (80-99); MEAN PLATELET VOLUME 10.2 fL (9.0-12.2); MONOCYTES # (AUTO) 1.1 10^3/uL (0.0-1.0); MONOCYTES % (AUTO) 8 % (0-12); NEUTROPHILS # (AUTO) 10.6 10^3/uL (1.8-7.8); NEUTROPHILS % (AUTO) 78 % (42-75); PLATELET COUNT 291 10^3/uL (130-400); WHITE BLOOD COUNT 13.6 10^3/uL (4.3-11.0)
[2021-12-09 04:30] LABS: CREATININE SERUM 1.85 MG/DL (0.60-1.30)
[2021-12-09 06:49] LABS: POTASSIUM 3.9 MMOL/L (3.6-5.0)
[2021-12-09 06:50] LABS: CALCIUM 8.9 MG/DL (8.5-10.1)
[2021-12-09 06:55] LABS: CREATININE SERUM 1.77 MG/DL (0.60-1.30); PHOSPHORUS 3.9 MG/DL (2.3-4.7)
[2021-12-09 06:57] LABS: MAGNESIUM 1.9 MG/DL (1.6-2.4)
[2021-12-09] MEDS ORDERED: EMPA1TAB21 PO (08:51)
[2021-12-09] MEDS ORDERED: ATOR20TA66 PO (08:51)
[2021-12-09] MEDS ORDERED: ASPI-1238 PO (08:51)
[2021-12-09] MEDS ORDERED: INSU100I32 SC (08:51)
[2021-12-09] MEDS ORDERED: GLIM4TAB5 PO (08:51)
--- NOTE | 2021-12-09 10:19 | Tele-ICU Progress Note ---
Subjective Date Seen by a Provider: Dec 09, 2021 Time Seen by a Provider: 10:18 Sepsis Event Evaluation Height, Weight, BMI Height: 5'6.00" Weight: 143lbs. oz. 64.327821so; 24.20 BMI Method:Stated Exam Exam Patient acknowledged, consented, and participated in this virtual visit which was conducted using real time audio/video Vital Signs Date Time Temp Pulse Resp B/P (MAP) Pulse Ox O2 Delivery O2 Flow Rate FiO2 12/09/21 10:00 77 23 105/64 99 Room Air 12/09/21 09:00 67 18 110/74 100 Room Air 12/09/21 08:00 65 15 107/58 99 Room Air 12/09/21 07:48 99 Room Air 12/09/21 07:44 36.6 12/09/21 07:00 61 14 98/58 96 Room Air 12/09/21 07:00 62 12/09/21 06:00 65 12 103/63 97 Room Air 12/09/21 05:00 62 11 105/63 96 Room Air 12/09/21 04:52 36.6 Room Air 12/09/21 04:00 65 11 109/64 95 Room Air 12/09/21 03:51 Room Air 12/09/21 03:28 66 111/77 100 Room Air 12/09/21 02:30 64 17 104/69 100 Room Air 12/09/21 02:15 64 22 111/66 97 Room Air 12/09/21 02:10 62 12 104/58 97 Room Air 12/09/21 02:09 64 26 109/75 97 Room Air 12/09/21 02:08 62 12/09/21 02:05 Room Air 12/09/21 02:05 36.4 64 18 111/66 98 Room Air 12/09/21 01:59 36.4 61 16 144/81 99 Room Air 12/09/21 01:35 36.4 64 18 111/66 98 Room Air 12/08/21 20:55 36.1 61 20 160/106 (124) 100 Room Air I & O 12/09/21 07:00 Intake Total 3350 ml Output Total 700 ml Balance 2650 ml Height & Weight Height: 5'6.00" Weight: 143lbs. oz. 64.416632wc; 24.20 BMI Method:Stated General Appearance: No Apparent Distress, WD/WN, Other (Waxing and waning right flank pain) Neck: Full Range of Motion, Normal Inspection Respiratory: No Accessory Muscle Use, No Respiratory Distress Cardiovascular: Regular Rate, Rhythm, Normal Peripheral Pulses Capillary Refill: Less Than 3 Seconds Extremity: Normal Capillary Refill, Normal Inspection Neurologic/Psychiatric: Alert, Oriented x3 Skin: Normal Color, Warm/Dry Results Lab Laboratory Tests 12/08/21 20:58 12/09/21 03:55 12/09/21 06:30 Assessment/Plan Assessment/Plan Tele-ICU Physician , Progress Note ) Available chart/ vitals / labs / Images reviewed Video assessment done using teleICU camera, rest of exam as per RN Discussed with RN , EXAM PER RN Events overnight : Afebrile FiO2 - ra I/O = Drips: Pressors: , hemodynamically stable Consultants: urology Hospital course: (12/08) admitted with HHNK and ULICES. Obstructive uropathy A/P HHNK -insulin gtt - hopefully able to stop today ULICES with obstructive uropathy -cont hydration , monitor - might need perc tuve draining if not recovering RIGHT hydronephrosis due to ureteral stone at UVJ -empiric abx - urology consulted -If no improvement with renals then need to transfer to higher level of care. Lines : (Central Line Necessity Reviewed) Davey: OG: Nutrition: po Analgesia: Anxiety/ delirium VTE Prophylaxis: scd Stress Ulcer Prophylaxis: po Plans in collaboration with bedside consultants and IM MDs. Discussed with RN to reach out if any questions or concerns A total of 31 minutes of critical care time was devoted to this patient today, required to treat and/or prevent further deterioration of critical care condition ( as above) . ROSEANNA PAYAN MD Dec 09, 2021 10:19
[2021-12-09 10:32] LABS: CALCIUM 8.6 MG/DL (8.5-10.1); CREATININE SERUM 1.64 MG/DL (0.60-1.30); POTASSIUM 4.1 MMOL/L (3.6-5.0)
--- NOTE | 2021-12-09 10:46 | History & Physical ---
LUCIA ZEE III MED STUDENT 12/09/21 1046: HPI History of Present Illness: Patient is a 61yo male who presented to the ED w/ "a couple days of bad R back pain". He notes that he has noticed this pain occasionally over the last couple of months, but it would come and go. However this time, the pain is more persistent, rated 8/10 in pain at max intensity. He has had similar pain to this in the past in 2007 when he was found to have R sided ureteral stones. Currently denies any recent fevers, chest pain, SOB, dysuria, hematuria, increased frequency, abdominal pain, changes in bowel habits. Does note that he ran out of his Tresiba on wednesday and only took 12u (compared to normal 30u) because he has not gone to brick picker his refills yet. Notes if not for the significant pain, he would not have come into the hospital to begin with. Source: patient Exam Limitations: no limitations Date seen by provider: Dec 09, 2021 Time Seen by Provider: 08:40 Attending Physician Vasu Putnam MD PCP Andrey Reynoso MD Consult Date of Admission Dec 08, 2021 at 22:20 Home Medications Home Medications Reviewed patient Home Medication Reconciliation performed by pharmacy medication reconciliations clinical technician and/or nursing. Patients Allergies have been reviewed. Allergies Coded Allergies: NKANo Known Allergies (Unverified Allergy, Mild, 02/27/19) CWK-Hdkumd-Lpkost Hx Patient Social History Employed/Student: employed (works at [employer] in [place]) Smoking Status: Never a Smoker (denies smoking history, but endorses chewing tobacco use since 8yo) Recent Hopitalizations: No Alcohol Use?: No (states last drink was over 10 years ago) Have you traveled recently?: No Immunizations Up To Date Influenza Vaccine Up-to-Date: No; Not Current First/Initial COVID19 Vaccinat: 12/2020 Second COVID19 Vaccination Jaime: 01/2021 COVID19 Vaccine Director Traffic And Planning: MODERNA Past Medical History Notes history of DM2, possible history of HTN requiring medications in the past but none currently, hx of kidney stones in 2007 Family Medical History Significant Family History: Cancer (lung cancer in brother), Diabetes (in father) Review of Systems ([facility]) Constitutional: no symptoms reported EENTM: no symptoms reported Respiratory: no symptoms reported Cardiovascular: no symptoms reported Gastrointestinal: No abdominal pain; nausea (some nausea on admission, however has since resolved); No vomiting Genitourinary: No decreased output, No discharge, No dysuria, No frequency, No hematuria, No hesitancy, No nocturia, No pain Musculoskeletal: back pain (Describes R flank pain) Skin: no symptoms reported Psychiatric/Neurological: No Symptoms Reported Reviewed Test Results Reviewed Test Results Lab Laboratory Tests 12/08/21 20:58 12/09/21 03:55 12/09/21 06:30 12/09/21 10:00 Radiology Date of Exam:12/08/21 CT ABD/PELVIS WO(KIDNEY STONE) TECHNIQUE: Unenhanced CT imaging of the abdomen and pelvis was performed. 2-D reformats are created and submitted for interpretation. Automatic exposure controls were utilized to optimize patient dose. INDICATION: Right flank pain COMPARISON: CT abdomen and pelvis of 01/05/2014 FINDINGS: Evaluation of the abdominal viscera is mildly limited without contrast. Lower chest: The lung bases are clear. No pericardial or pleural effusion. Peritoneum: No free intraperitoneal air or fluid. Liver and biliary system: Unenhanced liver is normal. Gallbladder is contracted without radiographic gallstones. Spleen and Pancreas: Spleen is normal. Unenhanced pancreas is grossly normal. Adrenals: Normal. tract: Moderate to severe right hydronephrosis and hydroureter due to an obstructing 8 mm stone at the right UVJ. There is an additional stone in the distal right ureter measuring 6 mm. Bilateral large nonobstructing renal stones are unchanged and the larger conglomeration is in the left renal pelvis measuring 25 mm. Urinary bladder is normally distended with mild wall thickening. GI tract: Stomach is decompressed. No bowel obstruction. No pericolonic inflammatory changes. The appendix is not seen with certainty. Vasculature and Lymph nodes: Normal caliber aorta. No abdominal or pelvic lymphadenopathy. Musculoskeletal: No concerning osseous lesion. IMPRESSION: 1. Moderate to severe right hydronephrosis due to an 8 mm obstructing stone at the right UVJ. There is an additional 6 mm stone in the distal right ureter just above the UVJ. 2. Bilateral large nonobstructing renal stones are also present. Physical Exam-([facility]) Physical Exam Vital Signs VS - Last 72 Hours, by Label 12/08/21 12/09/21 12/09/21 12/09/21 20:55 01:35 01:59 02:05 Temp 36.1 36.4 36.4 36.4 Pulse 61 64 61 64 Resp 20 18 16 18 B/P (MAP) 160/106 (124) 111/66 144/81 111/66 Pulse Ox 100 98 99 98 O2 Delivery Room Air Room Air Room Air Room Air 12/09/21 12/09/21 12/09/21 12/09/21 02:05 02:08 02:09 02:10 Pulse 62 64 62 Resp 26 12 B/P (MAP) 109/75 104/58 Pulse Ox 97 97 O2 Delivery Room Air Room Air Room Air 12/09/21 12/09/21 12/09/21 12/09/21 02:15 02:30 03:28 03:51 Pulse 64 64 66 Resp 22 17 B/P (MAP) 111/66 104/69 111/77 Pulse Ox 97 100 100 O2 Delivery Room Air Room Air Room Air Room Air 12/09/21 12/09/21 12/09/21 12/09/21 04:00 04:52 05:00 06:00 Temp 36.6 Pulse 65 62 65 Resp 11 11 12 B/P (MAP) 109/64 105/63 103/63 Pulse Ox 95 96 97 O2 Delivery Room Air Room Air Room Air Room Air 12/09/21 12/09/21 12/09/21 12/09/21 07:00 07:00 07:44 07:48 Temp 36.6 Pulse 62 61 Resp 14 B/P (MAP) 98/58 Pulse Ox 96 99 O2 Delivery Room Air Room Air 12/09/21 12/09/21 12/09/21 08:00 09:00 10:00 Pulse 65 67 77 Resp 15 18 23 B/P (MAP) 107/58 110/74 105/64 Pulse Ox 99 100 99 O2 Delivery Room Air Room Air Room Air Capillary Refill : Less Than 3 Seconds General Appearance: WD/WN, no apparent distress HEENT: PERRL/EOMI, pharynx normal Neck: non-tender, full range of motion, normal inspection Respiratory: chest non-tender, lungs clear, normal breath sounds, no respiratory distress, no accessory muscle use Cardiovascular: normal peripheral pulses, regular rate, rhythm, no edema (pt reports 6 year history of bilateral lower extremity edema, however this was noted on exam), no JVD, no murmur Peripheral Pulses: 2+ Dorsalis Pedis (R), 2+ Left Dors-Pedis (L), 2+ Radial Pulses (R), 2+ Radial Pulses (L) Gastrointestinal: normal bowel sounds, non tender, soft, no organomegaly, no pulsatile mass Back: normal inspection, no CVA tenderness (pt notes a 1/10 pain in R flank on exam) Extremities: normal range of motion, non-tender, no pedal edema, normal capillary refill Neurologic/Psychiatric: 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 Admitted to ICU for continued insulin drip for hyperglycemia and further management of ureterolithiasis #Hyperglycemia/DM2 #Hyponatremia #ULICES -On admission to ED w/ sugar of 795, AG of 14, BHB of 0.16 -BUN 43 and sCr 2.28 on admission -received 6u insulin followed by insulin drip in ED -Given replacement fluid w/ 2L LR in ED, transitioned to 1/2 NS w/ 5% dextrose and 5meq K replacement, running at 250 mL/hr on 12/09 -Sugars have decreased w/ insulin drip. Down to under 200 -BUN and sCr have decreased to 35 and 1.65 on 12/09 -Na 131 on 12/09 AM, likely component of hyperglycemia and 1/2 normal NS PLAN > REHEAT FURNACE OPERATOR atorvastatin > pt notes REHEAT FURNACE OPERATOR tresiba 30u qday, Synjardy 12.02/1000 mg BID, and glimeperide > Plan to overlap insulin drip and aspart sliding scale with 15u determir BID w/ plan to d/c insulin drip as able > continue fluid hydration w/ maintenance fluid and reassess BUN/Cr w/ AM labs > CTM Na w/ AM labs as no obvious symptoms currently #Ureterolithiasis - found to have obstructing stone in R UVJ (8mm) w/ hydroureter and hydronephrosis developed - started on rocephin in ED 2/2 slight elevation in WBC and obstructing stone seen on CT - pain currently controlled on fentanyl - contributing to ULICES that is slowly resolving PLAN > tamulosin 0.4mg > continue rocephin > will go to OR on 3/2 w/ urology for stone removal > likely d/c home following surgery if off insulin drip and procedure goes well VASU PUTNAM MD 12/09/21 1200: Home Medications Allergies Coded Allergies: NKANo Known Allergies (Unverified Allergy, Mild, 02/27/19) Physical Exam-([facility]) Physical Exam General Appearance: WD/WN, no apparent distress Respiratory: lungs clear, normal breath sounds Cardiovascular: regular rate, rhythm, no murmur Gastrointestinal: normal bowel sounds, non tender, soft Extremities: no pedal edema Neurologic/Psychiatric: alert, normal mood/affect Skin: normal color, warm/dry Assessment/Plan Assessment/Plan Admission Status: Inpatient Order (span 2 midnights) Reason for Inpatient Admission: Severe hyperglycemia requiring insulin drip. Supervisory-Addendum Brief Verification & Attestation Participated in pt care: history, MDM, physical Personally performed: exam, history, MDM Care discussed with: Medical Student Procedures: n/a I personally saw and examined this patient and repeated the crow history and physical exam- see my notes for my exam as I did not confirm all the exam documented by the medical student. I directed the plan of care as documented by the medical student. LUCIA ZEE III MED STUDENT Dec 09, 2021 10:46 VASU PUTNAM MD Dec 09, 2021 12:00
[2021-12-09] MEDS: inSUlin ASPART (NovoLOG) 1 UNIT/0.01 ML (CHARGE PER UNIT) SC SCH ×3 (11:24→21:02)
--- NOTE | 2021-12-09 13:28 | CONSULTATION REPORT ---
DATE OF SERVICE: 12/09/2021 ATTENDING PHYSICIAN: Dr. Alberto. SUMMARY: After reviewing the patient's record, x-rays, interviewing him and examining him, this is a 61-year-old white man known to me, last seen in 2013 for kidney stones and surgery for it. He is known to have bilateral large renal stones that he wished to observe and a known chronic hydro, but he presented to the emergency room with sugar issues as well as the right flank pain. He was admitted and started on insulin drip, which improved his sugar remarkably. He is doing well, looks well. Pain is better. He is tolerating diet well. He has a mild right CVA tenderness. No evidence of sepsis. His labs were reviewed. His kidney functions are better today after hydration apparently. IMPRESSION: Hyperosmolar hyperglycemic condition with acute kidney injury and bilateral renal stones and distal right ureteral stones with obstruction. PLAN: I had a lengthy discussion with the patient regarding his options. We are going to go ahead tomorrow with right ureteroscopy with stone lithotripsy, possible basket or stent or lithotomy. If unable to do so tomorrow on any of the stones, then on Wednesday, we will do ESWL. I do not think it is safe to wait until Wednesday to the whole procedures and the patient wishes to have something done as soon as possible, so we will plan for tomorrow. The procedure was fully explained to the patient. All of his questions were answered. We will discuss with Dr. Alberto and anesthesia okay. The patient is already on Rocephin. I kept him n.p.o. after midnight, held his aspirin and ordered the consent. CC: Ayo Yadav -- requested, unable to deliver. Job ID: [id number] DocumentID: [id number] Dictated Date: 12/09/2021 10:03:39 Impregnating Tank Operator Date: 12/09/2021 13:27:22 Dictated By: ANGELICA ACOSTA MD
[2021-12-09] MEDS: TAMSULOSIN 0.4 MG (FLOMAX) CAP PO SCH (17:48)
[2021-12-09] MEDS: cefTRIAXone 1 GM/50 ML (PRE-MIX) IV SCH (21:03)
[2021-12-10] MEDS: 1/2 NS IV SOLUTION 1,000 ML IV SCH ×4 (00:17→21:16)
[2021-12-10] MEDS: fentaNYL INJ 100 MCG/2 ML AMP IV PRN ×2 (04:12→08:36)
[2021-12-10] MEDS: inSUlin ASPART (NovoLOG) 1 UNIT/0.01 ML (CHARGE PER UNIT) SC SCH ×4 (05:50→21:13)
[2021-12-10 06:03] LABS: HEMATOCRIT 31 % (40-54); HEMOGLOBIN 10.2 g/dL (13.3-17.7); MEAN CORPUSCULAR HEMOGLOBIN 30 pg (25-34); MEAN CORPUSCULAR HGB CONC 33 g/dL (32-36); MEAN CORPUSCULAR VOLUME 91 fL (80-99); MEAN PLATELET VOLUME 10.6 fL (9.0-12.2); PLATELET COUNT 278 10^3/uL (130-400); WHITE BLOOD COUNT 8.9 10^3/uL (4.3-11.0)
[2021-12-10 06:13] LABS: POTASSIUM 3.9 MMOL/L (3.6-5.0)
[2021-12-10 06:14] LABS: CALCIUM 8.7 MG/DL (8.5-10.1)
[2021-12-10 06:18] LABS: CREATININE SERUM 1.74 MG/DL (0.60-1.30)
--- NOTE | 2021-12-10 07:10 | Progress Note-Pre Operative ---
Pre-Operative Progress Note H&P Reviewed The H&P was reviewed, patient examined and no changes noted. Date Seen by Provider: Dec 10, 2021 Time Seen by Provider: 07:09 Date H&P Reviewed: Dec 10, 2021 Time H&P Reviewed: 07:09 Pre-Operative Diagnosis: RT DISTAL URETERAL STONES ANGELICA ACOSTA MD Dec 10, 2021 07:10
--- NOTE | 2021-12-10 07:18 | Progress Note-Post Operative ---
Post-Operative Progess Note Surgeon (s)/Buyer Agent (s) Surgeon ANGELICA ACOSTA MD Buyer Agent: NONE Pre-Operative Diagnosis RT DISTAL URETERAL STONES AND MEATAL STENOSIS Post-Operative Diagnosis SAME Procedure & Operative Findings Date of Procedure 12/10/21 Procedure Performed/Findings CYSTOSCOPY, UD, RT URETEROSCOPY WITH STONE LITHOTRIPSY Anesthesia Type GENERAL Estimated Blood Loss Estimated blood loss (mL): NEGLIGIBLE Specimens/Packing Specimens Removed NONE Packing: NONE ANGELICA ACOSTA MD Dec 10, 2021 07:18
[2021-12-10] MEDS ORDERED: MIDAZOLAM 2 MG/2 ML (VERSED) VIAL ONE (08:50)
[2021-12-10] MEDS ORDERED: ROCURONIUM 10 MG/ML 5 ML SYRINGE IV ONE (08:50)
[2021-12-10] MEDS ORDERED: NEOSTIGMINE 3 MG/3 ML VIAL ONE (08:50)
[2021-12-10] MEDS ORDERED: LIDOCAINE PF 2% 5 ML (XYLOCAINE) VIAL ONE (08:50)
[2021-12-10] MEDS ORDERED: fentaNYL INJ 100 MCG/2 ML AMP ONE (08:50)
[2021-12-10] MEDS ORDERED: GLYCOPYRROLATE 0.2 MG/ML (ROBINUL) 2 ML VIAL ONE (08:50)
[2021-12-10] MEDS ORDERED: ONDANSETRON 4 MG/2 ML (SDV) Z0FRAN ONE (08:50)
[2021-12-10] MEDS ORDERED: proPOfol 200 MG/20 ML (DIPRIVAN) VIAL IV ONE (08:50)
[2021-12-10] MEDS ORDERED: LACTATED RINGERS 1,000 ML IV PRN (09:30)
[2021-12-10] MEDS ORDERED: FUROSEMIDE 40 MG/4 ML INJ (LASIX) ONE (10:07)
[2021-12-10] MEDS ORDERED: KETOROLAC 30 MG/ML VIAL ONE (10:07)
[2021-12-10 10:16] VITALS: BP 120/67
[2021-12-10 10:20] VITALS: BP 125/62
[2021-12-10] MEDS ORDERED: SEVOFLURANE (ULTANE) 15 ML INHAL SOLN ONE (10:28)
[2021-12-10 10:30] VITALS: BP 117/59
[2021-12-10] MEDS ORDERED: morphine INJ 10 MG/ML 1ML (SYR OR VIAL) IVP ONE (10:30)
[2021-12-10] MEDS ORDERED: ONDANSETRON 4 MG/2 ML (SDV) Z0FRAN IVP PRN (10:30)
[2021-12-10] MEDS ORDERED: HYDROmorphone 2 MG/ML VIAL (DILAUDID) IV ONE (10:30)
--- NOTE | 2021-12-10 10:31 | Anesthesia-General Post-Op ---
General Patient Condition Mental Status/LOC: Same as Preop Cardiovascular: Satisfactory Nausea/Vomiting: Absent Respiratory: Satisfactory Pain: Controlled Complications: Absent Post Op Complications Complications None Follow Up Care/Instructions Patient Instructions None needed. Anesthesia/Patient Condition Patient Condition Patient is doing well, no complaints, stable vital signs, no apparent adverse anesthesia problems. SHIRA CISNEROS DO Dec 10, 2021 10:31
--- NOTE | 2021-12-10 10:33 | Progress Note ---
LUCIA ZEE III MED STUDENT 12/10/21 1033: Subjective Subjective/Events-last exam Pt denies any significant overnight events. Notes that he will occasionally feel the pain in his R flank, however resolves quickly following scheduled pain medication. Denies any fevers, chills, chest pain, SOB, abdominal pain, dysuria, hematuria. Review of Systems General: No Chills, No Fatigue, No Malaise HEENT: No Head Aches, No Visual Changes, No Eye Pain, No Ear Pain, No Dysphasia, No Sinus Congestion, No Post Nasal Drip, No Sore Throat, No Other Pulmonary: No Dyspnea, No Cough, No Pleuritic Chest Pain Cardiovascular: No: Chest Pain, Palpitations Gastrointestinal: No: Nausea, Vomiting, Abdominal Pain Genitourinary: No Dysuria, No Frequency, No Hematuria Musculoskeletal: back pain (occasional R flank pain, rated 2-3/10. resolves w/ scheduled medicine) Neurological: No: Weakness, Numbness, Incoordination, Change in speech, Confusion, Seizures, Other Objective Exam Last Set of Vital Signs Vital Signs Date Time Temp Pulse Resp B/P (MAP) Pulse Ox O2 Delivery O2 Flow Rate FiO2 12/10/21 08:00 97 Room Air 12/10/21 07:44 37.3 73 18 106/56 Capillary Refill : Less Than 3 Seconds I&O Intake and Output 12/10/21 00:00 Intake Total 1550 ml Output Total 3100 ml Balance -1550 ml Intake Oral 1500 ml IV Total 50 ml Output Urine Total 3100 ml # Voids 5 General: Alert, Oriented X3, Cooperative HEENT: Atraumatic, PERRLA, EOMI, Mucous Memb Moist/[place] Neck: Supple, No JVD Lungs: Clear to Auscultation, Normal Air Movement Heart: Regular Rate, Normal S1, Normal S2, No Murmurs Abdomen: Normal Bowel Sounds, Soft Extremities: No Clubbing, No Cyanosis, Normal Pulses Skin: No Rashes Psych/Mental Status: Mental Status NL Other physical findings minimal R flank tenderness on exam Results/Procedures Lab Laboratory Tests 12/09/21 11:22: Glucometer 174H 12/09/21 15:35: Glucometer 227H 12/09/21 20:13: Glucometer 152H 12/10/21 05:23: White Blood Count 8.9, Red Blood Count 3.38L, Hemoglobin 10.2L, Hematocrit 31L, Mean Corpuscular Volume 91, Mean Corpuscular Hemoglobin 30, Mean Corpuscular Hemoglobin Concent 33, Red Cell Distribution Width 13.2, Platelet Count 278, Mean Platelet Volume 10.6, Sodium Level 134L, Potassium Level 3.9, Chloride Level 108H, Carbon Dioxide Level 16L, Anion Gap 10, Blood Urea Nitrogen 33H, Creatinine 1.74H, Estimat Glomerular Filtration Rate 45, BUN/Creatinine Ratio 19, Glucose Level 132H, Calcium Level 8.7 12/10/21 10:21: Glucometer 102 Microbiology 12/09/21 MRSA Screen - Final, Complete MRSA not isolated Laboratory Tests 12/10/21 05:23 Radiology Date of Exam:12/08/21 CT ABD/PELVIS WO(KIDNEY STONE) TECHNIQUE: Unenhanced CT imaging of the abdomen and pelvis was performed. 2-D reformats are created and submitted for interpretation. Automatic exposure controls were utilized to optimize patient dose. INDICATION: Right flank pain COMPARISON: CT abdomen and pelvis of 01/05/2014 FINDINGS: Evaluation of the abdominal viscera is mildly limited without contrast. Lower chest: The lung bases are clear. No pericardial or pleural effusion. Peritoneum: No free intraperitoneal air or fluid. Liver and biliary system: Unenhanced liver is normal. Gallbladder is contracted without radiographic gallstones. Spleen and Pancreas: Spleen is normal. Unenhanced pancreas is grossly normal. Adrenals: Normal. tract: Moderate to severe right hydronephrosis and hydroureter due to an obstructing 8 mm stone at the right UVJ. There is an additional stone in the distal right ureter measuring 6 mm. Bilateral large nonobstructing renal stones are unchanged and the larger conglomeration is in the left renal pelvis measuring 25 mm. Urinary bladder is normally distended with mild wall thickening. GI tract: Stomach is decompressed. No bowel obstruction. No pericolonic inflammatory changes. The appendix is not seen with certainty. Vasculature and Lymph nodes: Normal caliber aorta. No abdominal or pelvic lymphadenopathy. Musculoskeletal: No concerning osseous lesion. IMPRESSION: 1. Moderate to severe right hydronephrosis due to an 8 mm obstructing stone at the right UVJ. There is an additional 6 mm stone in the distal right ureter just above the UVJ. 2. Bilateral large nonobstructing renal stones are also present. Assessment/Plan Assessment/Plan Admission Dx Hyperglycemia ULICES Ureterolithiasis Nephrolithiasis Assessment & Plan Pt is a 61yo male w/ pmhx of DM2 and hx of kidney stones who presented to the ED w/ R flank pain for a couple days and was found to be hyperglycemic w/ new ULICES and obstructing R ureteral stone at UVJ. Admitted initially to ICU for continued insulin drip for hyperglycemia and further management of ureterolithiasis, moved to floor status once off of insulin drip #Hyperglycemia/DM2 #Hyponatremia #ULICES -On admission to ED w/ sugar of 795, AG of 14, BHB of 0.16 -BUN 43 and sCr 2.28 on admission -received 6u insulin followed by insulin drip in ED -BUN and sCr have decreased to 35 and 1.65 on 12/09 however w/ slight bump to BUN 33 and sCr 1.74 on 12/10 -Na 131 on 12/09 AM, likely component of hyperglycemia and 1/2 normal NS -Insulin drip stopped on 12/09, transitioned to determinr 15u BID w/ aspart sliding scale. sugars remain in high 100s w/ current regiment PLAN > COMMUNITY HEALTH PROGRAM COORDINATOR atorvastatin > pt notes COMMUNITY HEALTH PROGRAM COORDINATOR tresiba 30u qday, Synjardy 12.02/1000 mg BID, and glimeperide > continue fluid hydration w/ maintenance fluid (150mL/HR NS) and reassess BUN/Cr w/ AM labs > CTM Na w/ AM labs as no obvious symptoms currently #Ureterolithiasis - found to have obstructing stone in R UVJ (8mm) w/ hydroureter and hydronephrosis developed - started on rocephin in ED 11/12 slight elevation in WBC and obstructing stone seen on CT - pain currently controlled on fentanyl - contributing to ULICES that is slowly resolving - white count has resolved since admission w/ abx and fluids - To OR for cystoscopy w/ R ureteroscopy w/ stone lithotripsy for distal obstructing stone on 12/10 PLAN > tamulosin 0.4mg > continue rocephin > continue hospital admission following procedure given bump in sCr, will reassess and likely d/c on 12/11 VASU PUTNAM MD 12/10/211908: Subjective Subjective/Events-last exam I saw patient in the afternoon, after procedure, he states he is feeling okay, still having some blood in his urine, but no pain. Objective Exam General: Alert Lungs: Clear to Auscultation, Normal Air Movement Heart: Regular Rate, No Murmurs Abdomen: Normal Bowel Sounds, Soft Extremities: No Edema Neuro: Normal Speech Psych/Mental Status: Mood NL Supervisory-Addendum Brief Verification & Attestation Participated in pt care: history, MDM, physical Personally performed: exam, history, MDM Care discussed with: Medical Student Procedures: n/a I saw patient later in the day and repeated my own history and exam as documented. I directed the plan of care as documented by the medical student. LUCIA ZEE III MED STUDENT Dec 10, 2021 10:33 VASU PUTNAM MD Dec 10, 2021 19:09
[2021-12-10 10:40] VITALS: BP 112/60
[2021-12-10 10:50] VITALS: BP 100/57
[2021-12-10 11:00] VITALS: BP 103/66
--- NOTE | 2021-12-10 13:50 | OPERATIVE REPORT ---
DATE OF SERVICE: 12/10/2021 PREOPERATIVE DIAGNOSIS: Right distal ureteral stones. POSTOPERATIVE DIAGNOSES: Right distal ureteral stones, meatal stenosis. OPERATION PERFORMED: Urethral dilatation, cystoscopy, right ureteroscopy with stone lithotripsy. SURGEON: Angelica Acosta MD ANESTHESIA: General. COMPLICATIONS: None. DESCRIPTION OF PROCEDURE: Under satisfactory general anesthesia, the patient in lithotomy position, genitalia were prepped and draped in the usual sterile fashion. Attempted to pass a 23-Surinamese cystoscope met resistance at the meatus. The meatal stenosis was dilated with Luis sound to a #26-Surinamese easily. Cystoscope was inserted easily. The anterior urethra was normal. The prostate revealed some enlargement of the lateral lobe with some median bar and some bladder neck obstruction. Bladder was entered essentially normal except that there was a stone in the right UVJ protruding. I could not grasp it with a grasping forceps, so I removed the cystoscope, inserted the ureteroscope and completely fragmented the stone. David some fragments up, met other stones above that and broke them up completely with very small fragments, some of them were flowing down into the bladder. I went with ureteroscope above the site where the stones are and no further stones or fragments were seen. I removed the ureteroscope, reinserted the cystoscope to empty the bladder. The patient tolerated the procedure and anesthesia well and was sent to recovery room in stable condition. Job ID: [id number] DocumentID: [id number] Dictated Date: 12/10/2021 10:25:32 Audit Lead Date: 12/10/2021 13:49:02 Dictated By: ANGELICA ACOSTA MD
[2021-12-10] MEDS: TAMSULOSIN 0.4 MG (FLOMAX) CAP PO SCH (17:06)
[2021-12-10] MEDS: cefTRIAXone 1 GM/50 ML (PRE-MIX) IV SCH (21:12)
[2021-12-11] MEDS: 1/2 NS IV SOLUTION 1,000 ML IV SCH ×2 (03:27→04:39)
[2021-12-11 05:34] LABS: HEMATOCRIT 34 % (40-54); HEMOGLOBIN 11.2 g/dL (13.3-17.7); MEAN CORPUSCULAR HEMOGLOBIN 30 pg (25-34); MEAN CORPUSCULAR HGB CONC 33 g/dL (32-36); MEAN CORPUSCULAR VOLUME 93 fL (80-99); MEAN PLATELET VOLUME 10.3 fL (9.0-12.2); PLATELET COUNT 304 10^3/uL (130-400); WHITE BLOOD COUNT 8.3 10^3/uL (4.3-11.0)
[2021-12-11] MEDS: inSUlin ASPART (NovoLOG) 1 UNIT/0.01 ML (CHARGE PER UNIT) SC SCH ×2 (05:41→10:41)
[2021-12-11 05:49] LABS: POTASSIUM 3.7 MMOL/L (3.6-5.0)
[2021-12-11 05:50] LABS: CALCIUM 9.2 MG/DL (8.5-10.1)
[2021-12-11 05:54] LABS: CREATININE SERUM 1.77 MG/DL (0.60-1.30)
--- NOTE | 2021-12-11 09:29 | Progress Note - Urology ---
Progress Note-Urology Progress Notes/Assess & Plan Progress/Assessment & Plan RECOVERED WELL. HOME PIPER AND FOLLOW UP AT OFFICE Final Diagnosis RT URETERAL AND BILATERAL RENAL STONES ANGELICA ACOSTA MD Dec 11, 2021 09:29
[2021-12-11] MEDS ORDERED: CEFD300C3 PO (10:13)
[2021-12-11] MEDS ORDERED: TMSL.4C PO (10:13)
[2021-12-11] MEDS ORDERED: INSU100I14 SQ (10:19)
--- NOTE | 2021-12-11 12:07 | Progress Note ---
LUCIA ZEE III MED STUDENT 12/11/21 1207: Subjective Subjective/Events-last exam Pt denies any problems. Notes that procedure went well w/o any complications. Has been able to urinate w/o concern. Denies any cp, SOB, nausea, abdominal pain at this time. Review of Systems General: No Chills, No Night Sweats, No Fatigue, No Malaise, No Appetite, No Other HEENT: No Head Aches, No Visual Changes, No Eye Pain, No Ear Pain, No Dysphasia, No Sinus Congestion, No Post Nasal Drip, No Sore Throat, No Other Pulmonary: No Dyspnea, No Cough, No Pleuritic Chest Pain, No Other Cardiovascular: No: Chest Pain, Palpitations, Orthopnea, Paroxysmal Noc. Dyspnea, Edema, Lt Headedness, Other Gastrointestinal: No: Nausea, Vomiting, Abdominal Pain, Diarrhea, Constipation, Melena, Hematochezia, Other Genitourinary: No Dysuria, No Frequency, No Incontinence, No Hematuria, No Retention, No Other Musculoskeletal: No: other, neck pain, shoulder pain, arm pain, back pain, hand pain, leg pain, foot pain Neurological: No: Weakness, Numbness, Incoordination, Change in speech, Confusion, Seizures, Other Objective Exam Last Set of Vital Signs Vital Signs Date Time Temp Pulse Resp B/P (MAP) Pulse Ox O2 Delivery O2 Flow Rate FiO2 12/11/21 08:00 Room Air 12/11/21 07:23 36.7 65 18 142/70 100 12/10/21 10:20 8 Capillary Refill : Less Than 3 SecondsNONE I&O Intake and Output 12/11/21 00:00 Intake Total 3210 ml Output Total 500 ml Balance 2710 ml Intake Oral 2160 ml IV Total 1050 ml Output Urine Total 500 ml # Voids 5 General: Alert, Oriented X3, Cooperative, No Acute Distress HEENT: Atraumatic, PERRLA, EOMI, Mucous Memb Moist/[place] Neck: Supple, No JVD Lungs: Clear to Auscultation Heart: Regular Rate, Normal S1, Normal S2, No Murmurs Abdomen: Normal Bowel Sounds, Soft, No Tenderness Extremities: No Clubbing, No Cyanosis, No Edema, Normal Pulses, No Tenderness/Swelling Skin: No Significant Lesion Neuro: Normal Gait, Normal Speech, Cranial Nerves 3-12 NL Psych/Mental Status: Mental Status NL, Mood NL Results/Procedures Lab Laboratory Tests 12/10/21 15:24: Glucometer 292H 12/10/21 20:39: Glucometer 329H 12/11/21 05:26: White Blood Count 8.3, Red Blood Count 3.71L, Hemoglobin 11.2L, Hematocrit 34L, Mean Corpuscular Volume 93, Mean Corpuscular Hemoglobin 30, Mean Corpuscular Hemoglobin Concent 33, Red Cell Distribution Width 13.2, Platelet Count 304, Mean Platelet Volume 10.3, Sodium Level 136, Potassium Level 3.7, Chloride Level 106, Carbon Dioxide Level 17L, Anion Gap 13, Blood Urea Nitrogen 33H, Creatinine 1.77H, Estimat Glomerular Filtration Rate 44, BUN/Creatinine Ratio 19, Glucose Level 110H, Calcium Level 9.2 12/11/21 10:18: Glucometer 201H Microbiology 12/09/21 MRSA Screen - Final, Complete MRSA not isolated Laboratory Tests 12/11/21 05:26 Radiology Date of Exam:12/08/21 CT ABD/PELVIS WO(KIDNEY STONE) TECHNIQUE: Unenhanced CT imaging of the abdomen and pelvis was performed. 2-D reformats are created and submitted for interpretation. Automatic exposure controls were utilized to optimize patient dose. INDICATION: Right flank pain COMPARISON: CT abdomen and pelvis of 01/05/2014 FINDINGS: Evaluation of the abdominal viscera is mildly limited without contrast. Lower chest: The lung bases are clear. No pericardial or pleural effusion. Peritoneum: No free intraperitoneal air or fluid. Liver and biliary system: Unenhanced liver is normal. Gallbladder is contracted without radiographic gallstones. Spleen and Pancreas: Spleen is normal. Unenhanced pancreas is grossly normal. Adrenals: Normal. tract: Moderate to severe right hydronephrosis and hydroureter due to an obstructing 8 mm stone at the right UVJ. There is an additional stone in the distal right ureter measuring 6 mm. Bilateral large nonobstructing renal stones are unchanged and the larger conglomeration is in the left renal pelvis measuring 25 mm. Urinary bladder is normally distended with mild wall thickening. GI tract: Stomach is decompressed. No bowel obstruction. No pericolonic inflammatory changes. The appendix is not seen with certainty. Vasculature and Lymph nodes: Normal caliber aorta. No abdominal or pelvic lymphadenopathy. Musculoskeletal: No concerning osseous lesion. IMPRESSION: 1. Moderate to severe right hydronephrosis due to an 8 mm obstructing stone at the right UVJ. There is an additional 6 mm stone in the distal right ureter just above the UVJ. 2. Bilateral large nonobstructing renal stones are also present. Assessment/Plan Assessment/Plan Assessment & Plan (1) Ureterolithiasis Status: Acute Assessment & Plan: S/p cystoscopy w/ R ureteroscopy w/ stone lithotripsy for distal obstructing stone on 12/10. Both 6mm and 8mm obstructing stones were broken down. No obvious complications during procedure. (2) ULICES (acute kidney injury) Status: Acute Assessment & Plan: Presented to ED w/ sCr of 2.28. Has slowly decreased to 1.77 on 12/11 following procedure on 12/10. Uncertain if this is new baseline representing developement of CKD or if this will continue to resolve w/ time following procedure. Previous sCr in prior visits was 1.2. 11/12 uncertain if development of new CKD, advise to repeat bmp on 12/12 to assess renal function. As well, will hold synjardy and glimeperide until follow-up w/ pcp w/ repeat lab values. Advise to avoid use of NSAIDs until follow-up 11/12 concern for decreased renal function. (3) DM2 (diabetes mellitus, type 2) Status: Chronic Assessment & Plan: Presented to ED w/ sugars in 700 requiring insulin gtt. was able to transition to sq insulin during stay w/ improvement in sugars. A1c obtained during stay was 17.2 showing poor glycemic control over last 3 months. On d/c will plan to hold [employer]OR synjardy and glimeperide given uncertain renal status (whether new CKD as baseline). Will continue tresiba 30u qday and add on mealtime humalog pen (5u w/ meals). Advised pt on importance of checking sugars QAM as well as before eating meals to avoid hypoglycemic episodes. Advise to continue holding synjardy and glimeperide until follow-up w/ PCP and re- evaluation of renal function w/ repeat labs on 12/12 Qualifiers: Qualified Codes: E11.65 - Type 2 diabetes mellitus with hyperglycemia (4) Nephrolithiasis Status: Chronic Assessment & Plan: 2 large, non-obstruction kidney stones seen on admission CT. Will likely need follow-up w/ urology as outpatient status (5) Leukocytosis Status: Acute Assessment & Plan: leukocytosis on admission w/ white count of 13.6. Started on rocephin in the ED. Will d/c pt on 5 days of oral cefdinir for a total of 7 days abx coverage. VASU PUTNAM MD 12/11/21 1447: Supervisory-Addendum Brief Verification & Attestation Participated in pt care: history, MDM, physical Personally performed: exam, history, MDM Care discussed with: Medical Student Procedures: n/a I personally saw and evaluated this patient today, see discharge summary for my documentation. LUCIA ZEE III MED STUDENT Dec 11, 2021 12:07 VASU PUTNAM MD Dec 11, 2021 14:47
[2021-12-11 12:15] VITALS: BP 142/70
--- NOTE | 2021-12-11 14:46 | Discharge Summary ---
Discharge Summary Hospital Course Problems/Diagnosis: (1) Ureterolithiasis Status: Acute Assessment & Plan: S/p cystoscopy w/ R ureteroscopy w/ stone lithotripsy for distal obstructing stone on 12/10. Both 6mm and 8mm obstructing stones were broken down. No obvious complications during procedure. (2) ULICES (acute kidney injury) Status: Acute Assessment & Plan: Presented to ED w/ sCr of 2.28. Has slowly decreased to 1.77 on 12/11 following procedure on 12/10. Uncertain if this is new baseline representing development of CKD or if this will continue to resolve w/ time following procedure. Previous sCr in prior visits was 1.2. 11/12 uncertain if development of new CKD, advise to repeat bmp on 12/12 to assess renal function. As well, will hold synjardy and glimeperide until follow-up w/ pcp w/ repeat lab values. Advise to avoid use of NSAIDs until follow-up 11/12 concern for decreased renal function. (3) DM2 (diabetes mellitus, type 2) Status: Chronic Assessment & Plan: Presented to ED w/ sugars in 700 requiring insulin gtt. was able to transition to sq insulin during stay w/ improvement in sugars. A1c obtained during stay was 17.2 showing poor glycemic control over last 3 months. On d/c will plan to hold [employer]AT [employer] synjardy and glimeperide given uncertain renal status (whether new CKD as baseline). Will continue tresiba 30u qday and add on mealtime humalog pen (5u w/ meals). Advised pt on importance of checking sugars QAM as well as before eating meals to avoid hypoglycemic episodes. Advise to continue holding synjardy and glimeperide until follow-up w/ PCP and re- evaluation of renal function w/ repeat labs on 12/12 Qualifiers: Qualified Codes: E11.65 - Type 2 diabetes mellitus with hyperglycemia (4) Nephrolithiasis Status: Chronic Assessment & Plan: 2 large, non-obstruction kidney stones seen on admission CT. Will likely need follow-up w/ urology as outpatient status (5) Leukocytosis Status: Acute Assessment & Plan: leukocytosis on admission w/ white count of 13.6. Started on rocephin in the ED. Will d/c pt on 5 days of oral cefdinir for a total of 7 days abx coverage. Hospital Course Date of Admission: Dec 08, 2021 at 22:20 Admission Diagnosis : Family Physician/Provider: Andrey Reynoso MD Date of Discharge: 12/11/21 Discharge Diagnosis: See problem list Hospital Course: See problem list Labs and Pending Lab Test: Laboratory Tests 12/10/21 15:24: Glucometer 292H 12/10/21 20:39: Glucometer 329H 12/11/21 05:26: White Blood Count 8.3, Red Blood Count 3.71L, Hemoglobin 11.2L, Hematocrit 34L, Mean Corpuscular Volume 93, Mean Corpuscular Hemoglobin 30, Mean Corpuscular Hemoglobin Concent 33, Red Cell Distribution Width 13.2, Platelet Count 304, Mean Platelet Volume 10.3, Sodium Level 136, Potassium Level 3.7, Chloride Level 106, Carbon Dioxide Level 17L, Anion Gap 13, Blood Urea Nitrogen 33H, Creatinine 1.77H, Estimat Glomerular Filtration Rate 44, BUN/Creatinine Ratio 19, Glucose Level 110H, Calcium Level 9.2 12/11/21 10:18: Glucometer 201H Microbiology 12/09/21 MRSA Screen - Final, Complete MRSA not isolated Home Meds Active Novolog Flexpen (Insulin Aspart) 300 Units/3 Ml Solution 5 Units SQ AC Cefdinir 300 Mg Capsule 300 Mg PO BID Flomax (Tamsulosin HCl) 0.4 Mg Cap 0.4 Mg PO DAILY@1800 Reported Aspirin EC (Aspirin) 81 Mg Tablet.dr 81 Mg PO DAILY Atorvastatin Calcium 20 Mg Tablet 20 Mg PO HS LAST FILLED 08-04-2021 #90/90 DAY SUPPLY Tresiba Flextouch U-100 (Insulin Degludec) 100 Unit/1 Ml Insuln.pen 30 Units SC HS Assessment/Pt DC Instructions Follow up with primary physician within a week of discharge. Follow up for lab draw at [facility] tomorrow. Discharge Diet: ADA Diet Activity as Tolerated: Yes Discharge Physical Examination Allergies: Coded Allergies: NKANo Known Allergies (Unverified Allergy, Mild, 02/27/19) General Appearance: No Apparent Distress Respiratory: Lungs Clear, Normal Breath Sounds Cardiovascular: Regular Rate, Rhythm, No Murmur Gastrointestinal: Normal Bowel Sounds, Non Tender, Soft Skin: Normal Color, Warm/Dry Neurologic/Psychiatric: Alert, Normal Mood/Affect Supervisory-Addendum Brief Supervisory Addendum Verification and Attestation of Medical Student E/M Service A medical student performed and documented this service in my presence. I reviewed and verified all information documented by the medical student and made modifications to such information, when appropriate. I personally performed the physical exam and medical decision making. Guera Alberto, Dec 11, 2021,17:25 GUERA ALBERTO MD Dec 11, 2021 14:46
== END 2021-12-11 12:15 | disposition home or self-care (01) | DRG 682 ==
LOC: EDUNIT# 20:55 → ER 20:57 → ICU 22:20 → 4TH 12-09 17:56
PROVIDERS: ADMIT Family Medicine; ATTEND Family Medicine
PROC: 8E0ZXY6 Isolation (ICD-10-PCS; 2021-12-09)
PROC: 0T7D7ZZ Dilation of Urethra, Via Natural or Artificial Opening (ICD-10-PCS; 2021-12-10)
PROC: 0TF68ZZ Fragmentation in Right Ureter, Via Natural or Artificial Opening Endoscopic (ICD-10-PCS; principal; 2021-12-10 09:29)
DX: N17.9 Acute kidney failure, unspecified (principal); E11.00 Type 2 diabetes mellitus with hyperosmolarity without nonketotic hyperglycemic-hyperosmolar coma (NKHHC); E87.1 Hypo-osmolality and hyponatremia; N13.2 Hydronephrosis with renal and ureteral calculous obstruction; N35.919 Unspecified urethral stricture, male, unspecified site; H54.7 Unspecified visual loss; F17.220 Nicotine dependence, chewing tobacco, uncomplicated; Z79.4 Long term (current) use of insulin
CPT/HCPCS: 36415; 71045; 74018; 74176; 76000; 80048; 80053; 81000; 82010; 82805; 82947; 83036; 83735; 84100; 85025; 85027; 87081; 87636; 96361; 96374; 96375; 96376